=== PATIENT | male | born 2005 | race Caucasian/White ===

== ENCOUNTER 2024-02-15 23:00 | Emergency (ER) | payer SELFPAY ==
[2024-02-15 23:06] VITALS: BP 108/68; PULSE 102; RESP 14; TEMP 36.6; O2SAT 97; BMI 29.3
[2024-02-15 23:11] VITALS: PULSE 100; RESP 16
--- NOTE | 2024-02-15 23:23 | W.ED.NAVMDI ---
HPI - Nausea/Vomiting/Diarrhea General: Chief complaint: Nausea/Vomiting/Diarrhea Stated complaint: N/V Time Seen by Provider: 02/15/24 23:09 History of Present Illness: 18-year-old male patient comes in today with multiple episodes of vomiting starting this evening. Patient denies any abdominal pain. Patient and family denies any use of alcohol or other drugs. No fevers been reported. Patient reports minimal to no pain. Patient appears nontoxic. Associated nausea: Yes Associated symtoms: Reports nausea Review of Systems General: Reports: 10 or more systems reviewed and unremarkable except in HPI and below GI: Reports: nausea and vomiting Physical Exam Const: COMMON NORMALS: alert HENMT: COMMON NORMALS: normocephalic HEAD & SCALP: normocephalic Neck/C-Spine: COMMON NORMALS: no meningeal signs Resp: COMMON NORMALS: normal respiratory effort and clear to auscultation bilaterally AUSCULTATION: clear to auscultation bilaterally Cardio: COMMON NORMALS: regular rate and regular rhythm RATE: regular rate RHYTHM: regular rhythm GI: COMMON NORMALS: Soft to palpation and non-tender PALPATION: Yes Soft to palpation Back/Pelvis: COMMON NORMALS: thoracic and lumbar spine normal to inspection Extremity: COMMON NORMALS: full ROM Neuro: SENSORIUM/ORIENTATION: Yes alert MENINGEAL SIGNS: Yes no meningeal signs Skin: COMMON NORMALS: turgor normal GENERAL SKIN EXAM: turgor normal Course Vital Signs: Vital signs: Vital Signs Temperature 97.9 F 02/15/24 23:06 Pulse Rate 100 02/15/24 23:11 Respiratory Rate 15 02/15/24 23:41 Blood Pressure 108/68 02/15/24 23:06 Pulse Oximetry 99 02/15/24 23:41 Oxygen Delivery Me thod Room Air 02/15/24 23:41 MDM - Nausea/Vomiting/Diarrhea Medical Decision Making 18-year-old male patient comes in today for complaints of nausea and vomiting multiple episodes starting this evening. On exam patient appears nontoxic. Patient appears no pain. Abdomen is soft with no localized tenderness. Differential diagnosis includes but not limited to gastroenteritis, gastritis, gallbladder disease, pancreatitis. CBC had some elevation in white blood cells and red blood cells suggesting concentration of blood. CMP noted a sodium 135 but otherwise unremarkable. Believe patient has some mild dehydration with acute nausea and vomiting. This is most likely due to a viral syndrome. Recommended monitoring for worsening symptoms return as needed otherwise follow-up with primary care. Lab Data 02/15/24 23:30 02/15/24 23:30 Laboratory Results WBC 18.90 10^3/uL (4.5-13.0) H 02/15/24 23:30 RBC 6.01 10^6/uL (3.85-5.65) H 02/15/24 23:30 Hgb 15.90 g/dL (13.2-15.6) H 02/15/24 23:30 Hct 47.8 % (37-53) 02/15/24 23: MCV 79.5 fl (82-101) L 02/15/24 23: MCH 26.5 pg (27-33) L 02/15/24 23: MCHC 33.3 g/dL (30-55) 02/15/24 23: RDW 12.2 % (12.1-15.1) 02/15/24 23: Plt Count 263 10^3/cmm (157-399) 02/15/24 23: MPV 9.6 fL (7.4-10.4) 02/15/24 23:30 Neut % (Auto) 92.1 % 02/15/24 23:30 Lymph % (Auto) 2.7 % 02/15/24 23:30 Kleberg % (Auto) 4.2 % 02/15/24 23:30 Eos % (Auto) 0.3 % 02/15/24 23:30 Baso % (Auto) 0.3 % 02/15/24 23:30 Neut # (Auto) 17.42 10^3/uL (1.8-8.0) H 02/15/24 23:30 Lymph # (Auto) 0.5 10^3/uL (1.5-6.5) L 02/15/24 23:30 Kleberg # (Auto) 0.8 10^3/uL (0.2-0.9) 02/15/24 23:30 Eos # (Auto) 0.1 10^3/uL (0.0-0.8) 02/15/24 23:30 Baso # (Auto) 0.1 10^3/uL (0.0-0.1) 02/15/24 23:30 Nucleated RBC % (auto) 0 % 02/15/24 23:30 Nucleated RBCs # 0.0 /100WBC 02/15/24 23:30 Sodium 135 mmol/L (136-145) L 02/15/24 23:30 Potassium 4.6 mmol/L (3.5-5.1) 02/15/24 23:30 Chloride 99 mmol/L (98-107) 02/15/24 23:30 Carbon Dioxide 25 mmol/L (22-29) 02/15/24 23:30 Anion Gap 15.6 (5-19) 02/15/24 23:30 BUN 18 mg/dL (6-20) 02/15/24 23:30 Creatinine 0.9 mg/dL (0.7-1.2) 02/15/24 23:30 GFR Calculation 108.7 mL/min (90-130) 02/15/24 23:30 Glucose 130 mg/dL (65-115) H 02/15/24 23:30 Calculated Osmolality 284 mOsm/kg (285-295) L 02/15/24 23:30 Calcium 9.2 mg/dL (8.5-10.5) 02/15/24 23:30 Total Bilirubin 0.3 mg/dL (0.15-1.2) 02/15/24 23:30 AST 17 U/L (0-40) 02/15/24 23:30 ALT 29 U/L (0-41) 02/15/24 23:30 Alkaline Phosphatase 75 U/L (40-130) 02/15/24 23:30 Total Protein 7.8 g/dL (6.6-8.7) 02/15/24 23:30 Albumin 4.5 g/dL (3.5-5.2) 02/15/24 23:30 Globulin 3.3 g/dL (1.3-4.6) 02/15/24 23:30 Lipase 20 U/L (13-60) 02/15/24 23:30 No radiology studies performed this visit Discharge Plan Discharge Patient Disposition: Home Clinical Impression: Viral syndrome Condition: Stable Prescriptions: New ondansetron 4 mg tablet,disintegrating 4 mg PO Q8H PRN (Reason: nausea and vomiting) Qty: 10 0RF Discharge Orders: Discharge ED (Routine); Ordered 02/16/24 Ordered By: Jean Carlos Schwarz Discharge Diet: Advance as tolerated Discharge Activity: Increase activity as tolerated Patient Instructions: Acute Nausea and Vomiting (ED) Activity Restrictions/Additional Instructions: Drink frequent sips of fluid to keep hydrated. Activity as tolerated. Follow-up with primary care. Return to ER for worsening symptoms such as fever greater than 100.4, severe abdominal pain, blood in vomit or stool. francisco Gaytan' obezvozhivaniya. Aktivnost' kak terpimaya. Posleduyushcheye nablyudeniye za pervichnoy meditsinskoy pomoshch'kim. Vernites' v otdeleniye neotlozhnoy pomoshchi violeta bryandsfionaii angela aguilar temperatura vyshe 40,0, paula'linda franco' v zhivote, krov' v rvote nura stule. Stand Alone Forms: Work/School Release Coding Level of Care Code ED Social Services Specialist for Alida Conley
[2024-02-15 23:34] LABS: Basophils # 0.1 10^3/uL (0.0-0.1); Basophils % 0.3 %; Eosinophils # 0.1 10^3/uL (0.0-0.8); Eosinophils % 0.3 %; Hematocrit 47.8 % (37-53); Lymphocytes # 0.5 10^3/uL (1.5-6.5); Lymphocytes % 2.7 %; Mean Corpuscular HGB Conc 33.3 g/dL (30-55); Mean Corpuscular Hemoglobin 26.5 pg (27-33); Mean Corpuscular Volume 79.5 fl (82-101); Mean Platelet Volume 9.6 fL (7.4-10.4); Monocytes # 0.8 10^3/uL (0.2-0.9); Monocytes % 4.2 %; Neutrophils # 17.42 10^3/uL (1.8-8.0); Neutrophils % 92.1 %; Nucleated Red Blood Cells % 0 %; Platelet Count 263 10^3/cmm (157-399); Red Blood Count 6.01 10^6/uL (3.85-5.65); Red Cell Distribution Width 12.2 % (12.1-15.1)
[2024-02-15] MEDS: ondansetron 2 mg/ML SDV 2 mL 4 MG IVP (23:34)
[2024-02-15] MEDS: lactated ringers 1,000 ML 999 ML IV (23:35)
[2024-02-15 23:41] VITALS: RESP 15; O2SAT 99
[2024-02-15 23:56] LABS: Alanine Aminotransferase 29 U/L (0-41); Albumin Level 4.5 g/dL (3.5-5.2); Alkaline Phosphatase 75 U/L (40-130); Anion Gap 15.6 (5-19); Aspartate Amino Transferase 17 U/L (0-40); Blood Urea Nitrogen 18 mg/dL (6-20); Calcium 9.2 mg/dL (8.5-10.5); Carbon Dioxide 25 mmol/L (22-29); Chloride 99 mmol/L (98-107); Creatinine Clr Calc Pharmacy 143.7144; Globulin 3.3 g/dL (1.3-4.6); Glomerular Filtration Rate 108.7 mL/min (90-130); Glucose 130 mg/dL (65-115); Lipase 20 U/L (13-60); Osmolality Calculated 284 mOsm/kg (285-295); Potassium 4.6 mmol/L (3.5-5.1); Sodium 135 mmol/L (136-145); Total Bilirubin 0.3 mg/dL (0.15-1.2); Total Protein 7.8 g/dL (6.6-8.7)
[2024-02-16 01:02] VITALS: BP 131/88; PULSE 94; RESP 16; O2SAT 100
== END 2024-02-16 01:04 | disposition home or self-care (01) ==
PROVIDERS: Emergency Provider Nurse Practitioner Family
DX: B34.9 Viral infection, unspecified (principal)
CPT/HCPCS: 80053; 83690; 85025; 96374; 99284; J2405; J7120